=== PATIENT | male | born 1955 | race Two or more races ===

== ENCOUNTER 2021-03-07 07:25 | Day surgery (SDC) | payer OTHER | END 2021-03-07 15:20 | disposition home or self-care (01) | LOC: AMB-ENDOS 07:25 | PROVIDERS: ATTEND Surgery | DX: K62.89 Other specified diseases of anus and rectum (principal); K64.8 Other hemorrhoids; Z20.822 Contact with and (suspected) exposure to COVID-19; Z12.11 Encounter for screening for malignant neoplasm of colon ==